=== PATIENT | female | born 1955 | race Caucasian/White ===

== ENCOUNTER → 2016-06-15 | Outpatient (CLI) | payer OTHER ==
[~2016-06-15] MED LIST: AMLO-110 PO; CEPH500C PO; FURO-85 PO; LISI40TA PO; ZOLP10TA6 PO
[2016-06-15 11:22] LABS: URINE APPEARANCE CLEAR (CLEAR); URINE BILIRUBIN NEG (NEG); URINE COLOR YELLOW; URINE EPITHELIAL CELL AUTO >30 /lpf (0-5); URINE NITRITE NEG (NEG); URINE SPECIFIC GRAVITY 1.019 (1.000-1.030); UROBILINOGEN NEG (NEG)
[2016-06-15 11:25] LABS: ESTIMATED AVERAGE GLUCOSE 123 mg/dl; HA1C FLAG Normal (Normal)
[2016-06-15 11:28] LABS: MANUAL MICROSCOPIC REQUIRED? NO; REVIEW REQ? NO
[2016-06-15 11:41] LABS: ALT/SGPT 17 U/L (12-78); BLOOD UREA NITROGEN 17 mg/dl (7-18); BUN/CREATININE RATIO 22.1 (10-20); CALCIUM 8.9 mg/dl (8.5-10.1); CARBON DIOXIDE 26 mmol/L (21-32); CHLORIDE 105 mmol/L (98-107); CREATININE 0.78 mg/dl (0.60-1.20); GLUCOSE 103 mg/dl (70-99); POTASSIUM 4.1 mmol/L (3.5-5.1); SODIUM 139 mmol/L (136-145)
[2016-06-15 11:46] LABS: ALB/GLOB RATIO 0.8 (0.9-2); ALKALINE PHOSPHATASE 86 U/L (45-117); AST/SGOT 11 U/L (15-37)
== END | disposition home or self-care (01) ==
LOC: C.LAB1850 09:54
PROVIDERS: ATTEND Family Medicine
DX: I10 Essential (primary) hypertension (principal); Z11.59 Encounter for screening for other viral diseases; R31.29 Other microscopic hematuria; R73.03 Prediabetes

== ENCOUNTER → 2016-07-09 | Outpatient (CLI) | payer OTHER | END | disposition home or self-care (01) | LOC: C.PAPS 16:45 | PROVIDERS: ATTEND Obstetrics & Gynecology | DX: Z01.411 Encounter for gynecological examination (general) (routine) with abnormal findings (principal) ==

== ENCOUNTER 2016-11-08 01:43 | Emergency (ER) | payer OTHER ==
[~2016-11-08] VITALS: Ht 175.3 cm; Wt 141.4 kg
[~2016-11-08 01:43] MED LIST changes: -CEPH500C PO
[2016-11-08 01:49] VITALS: TEMP 36.5; Ht 175.3 cm; Wt 141.4 kg
[2016-11-08] MEDS ORDERED: CEPH500C PO (02:08)
[2016-11-08] MEDS ORDERED: CEPHALEXIN 500MG HOME PACK 1 EA BTL PO ONE (02:15)
[2016-11-08 02:37] VITALS: BP 138/84; PULSE 82; O2SAT 96
--- NOTE | 2016-11-08 03:39 | EMERGENCY ROOM VISIT NOTE ---
History Report prepared by Radha: Meli Mc Under the Supervision of: Dr. Robert Britt M.D. First contact with patient: 01:57 Chief Complaint: RASH Stated Complaint: RED/SWELLING ON CHEST History of Present Illness The patient is a 61 year old female who presents to the Emergency Room with complaints of a sudden rash beginning shortly prior to arrival. She states that the rash is on her right upper chest and that it feels warm, but that it is not sore. The patient does not think that the rash is from a bite. There is no blistering. It is not itching. She denies any new chemicals or contacts. She states that she did not have a stressful day. Pt denies LOC, headache, fevers, chills, diaphoresis, visual changes, neck pain, chest pain, breathing difficulties, nausea, vomiting, abdominal pain, back pain, melena, hematochezia , urinary symptoms, numbness, weakness, lymphadenopathy, or other complaints. Source of History: patient Onset: shortly prior to arrival Position: chest (right) Quality: other (rash) Timing: other (sudden) Associated Symptoms: + neck pain Review of Systems See HPI for pertinent positives and negatives. A total of six systems were reviewed and were otherwise negative. Past Medical & Surgical Medical Problems: (1) Arthritis (2) Hypertension Family History FH: colon cancer Social History Smoking Status: Former Smoker Marital Status: single Occupation Status: employed Current/Historical Medications Scheduled Amlodipine (Norvasc), 5 MG PO HS Cephalexin Monohydrate (Keflex), 500 MG PO QID Lisinopril (Zestril), 40 MG PO HS Scheduled PRN Furosemide (Lasix), 20 MG PO DAILY PRN for LEG SWELLING Zolpidem Tartrate (Zolpidem Tartrate), 10 MG PO HS PRN for Sleep Allergies Coded Allergies: No Known Allergies (Unverified , 08/14/15) Physical Exam Vital Signs Date Time Temp Pulse Resp B/P (MAP) Pulse Ox O2 Delivery O2 Flow Rate FiO2 11/08/16 02:37 82 18 138/84 96 11/08/16 01:49 36.5 83 19 142/71 96 Room Air Physical Exam GENERAL: Awake, alert, well-appearing, in no acute distress HENT: Normocephalic, atraumatic. Oropharynx unremarkable. EYES: Normal conjunctiva. Sclera non-icteric. NECK: Supple. No nuchal rigidity. FROM. No JVD. RESPIRATORY: Clear to auscultation. CARDIAC: Regular rate, normal rhythm. Extremities warm and well perfused. Pulses equal. MUSCULOSKELETAL: Chest examination reveals no tenderness. The back is symmetrical on inspection without obvious abnormality. There is no CVA tenderness to palpation. NEURO: Normal sensorium. No sensory or motor deficits noted. SKIN: No jaundice noted. Faint erythematous patch in right medial upper chest. Mild swelling. No blistering. No purpura. No crepitus. Medical Decision & Procedures Medications Administered Medications (Trade) Dose Ordered Sig/Sundar Route Start Time Stop Time Status Last Admin Dose Admin Cephalexin Monohydrate (Keflex 500MG Home Pack) 1 homepack NOW ONCE PO 11/08/16 02:15 11/08/16 02:16 DC 11/08/16 02:35 1 HOMEPACK ED Course 0215: The patient was evaluated in room B12B. A complete history and physical exam was performed. 0215: Ordered Cephalexin Monohydrate 1 homepack PO. Medical Decision Medication Reconciliation: I attest that I have personally reviewed the patient' s current medication list Blood pressure screening: Patient was found to have an elevated blood pressure and was referred to their primary doctor for recheck and further treatment. Triage Nursing notes reviewed and agree them. Additional history obtained from the family. The patient's history was concerning for a rash. Differential diagnosis: Etiologies such as cellulitis, Zimmerman-Germán syndrome, toxic epidermal necrolysis, erythema multiforme, scabies, HSV, Zoster, staph scalded skin syndrome, viral exanthem, fungal infection, urticaria, allergic reaction, contact dermatitis, as well as others were entertained. Physical examination: As above. There was an erythematous patch without signs of zoster. No crepitus. No open wounds. No hives. Concerning for early cellulitis. ER treatment provided: Keflex home pack Diagnostic interpretation by me: Deferred The etiology for the patient's rash is not clearly evident at this time although seems most consistent with an early cellulitis. I discussed conservative management. She will be prescribed Keflex and use warm compresses. If She worsens in any way she will come back. By the evaluation outlined above emergent etiologies such as Zimmerman-Germán syndrome, toxic epidermal necrolysis, erythema multiforme, scabies, HSV, varicella, zoster, staph scalded skin syndrome, urticaria, allergic reaction, as well as others were deemed relatively unlikely. The patient was informed about the findings as listed above. All questions were answered and she was pleased with the treatment. Return instructions were outlined and the patient was discharged in stable condition. Outpatient prescription management: Keflex Referral: The patient was referred back to her primary care physician for follow-up next week for a recheck of the current condition. The chart was completed utilizing [employer] voice recognition software. Grammatical errors, random word insertions, pronoun errors, and incomplete sentences are an occasional consequence of this system due to software limitations, ambient noise, and hardware issues. Any formal questions or concerns about the content, text, or information contained within the body of this dictation should be directly addressed to the physician for clarification. Impression Primary Impression: Cellulitis Scribe Attestation The scribe's documentation has been prepared under my direction and personally reviewed by me in its entirety. I confirm that the note above accurately reflects all work, treatment, procedures, and medical decision making performed by me. Departure Information Dispostion Home / Self-Care Prescriptions Cephalexin Monohydrate (Keflex) 500 Mg Cap 500 MG PO QID, #36 CAP Prov: Robert Britt MD 11/08/16 Referrals Humberto Perales D.O.[facility] (PCP) Forms HOME CARE DOCUMENTATION FORM, IMPORTANT VISIT INFORMATION, WORK / SCHOOL INSTRUCTIONS Patient Instructions My [facility] Additional Instructions CELLULITIS INSTRUCTIONS: Cephalexin(Keflex) 500mg: Take one pill four times daily for 10 days for your skin infection. All antibiotics can cause diarrhea. If this occurs and you feel worse or it does not resolve in 1-2 days follow up with your doctor or return to the Emergency Department as this could be signs of serious underlying problems. Any medication can cause an allergic reaction, stop the pills immediately and return to the ER for rash, hives, breathing difficulties, or swelling. Review the package insert for all your medications. This is necessary as important health information is provided for your benefit and current care. Acetaminophen(Tylenol) may be used for fever or pain. Use 1000mg every six hours as needed. Avoid using more than 4000mg in a 24 hour period. Warm compresses to the affected area 4 times daily for 15-20 minutes. Rest and drink plenty of fluids. Continue current medications. Return to the ER for severe pain, persistent fevers, spreading redness, or any worsening of your condition. Follow up with your primary physician this week for a recheck of the current condition and blood pressure check.
== END 2016-11-08 02:38 | disposition home or self-care (01) ==
LOC: C.EDB 01:44
DX: L03.313 Cellulitis of chest wall (principal); M19.90 Unspecified osteoarthritis, unspecified site; I10 Essential (primary) hypertension; Z80.9 Family history of malignant neoplasm, unspecified; Z87.891 Personal history of nicotine dependence; Z79.899 Other long term (current) drug therapy

== ENCOUNTER → 2017-03-29 | Outpatient (CLI) | payer OTHER ==
[~2017-03-29] MED LIST changes: +CEPH500C PO
[2017-03-29 17:07] LABS: HEMATOCRIT 37.6 % (37-47); MEAN CELL VOLUME 86.4 fL (80-100); MEAN CORPUSCULAR HEMOGLOBIN 28.5 pg (25-34); MEAN PLATELET VOLUME 10.9 fL (7.4-10.4); PLATELET COUNT 228 K/uL (130-400); RED BLOOD COUNT 4.35 M/uL (4.2-5.4)
[2017-03-29 17:23] LABS: ALT/SGPT 64 U/L (12-78); AST/SGOT 40 U/L (15-37); BLOOD UREA NITROGEN 23 mg/dl (7-18); CALCIUM 9.1 mg/dl (8.5-10.1); CARBON DIOXIDE 30 mmol/L (21-32); CHLORIDE 102 mmol/L (98-107); CREATININE 1.05 mg/dl (0.60-1.20); GLUCOSE 103 mg/dl (70-99); POTASSIUM 5.2 mmol/L (3.5-5.1); SODIUM 138 mmol/L (136-145)
[2017-03-29 17:27] LABS: ALB/GLOB RATIO 0.8 (0.9-2); ALKALINE PHOSPHATASE 95 U/L (45-117); CHOLESTEROL 218 mg/dl (0-200); CHOLESTEROL/HDL RATIO 3.9; HDL CHOLESTEROL 56 mg/dl; LDL CHOLESTEROL CALCULATED 137 mg/dl; TRIGLYCERIDES 127 mg/dl (0-150); VERY LOW DENSITY LIPOPROT CALC 25 mg/dl
[2017-03-30 06:06] LABS: ESTIMATED AVERAGE GLUCOSE 123 mg/dl; HA1C FLAG Normal (Normal)
== END | disposition home or self-care (01) ==
LOC: C.LABBFT 14:18
PROVIDERS: ATTEND Physician Assistant Medical
DX: I10 Essential (primary) hypertension (principal); R73.03 Prediabetes

== ENCOUNTER → 2017-12-01 | Outpatient (CLI) | payer OTHER ==
[~2017-12-01] MED LIST changes: -AMLO-110 PO; +AMLO5TAB3 PO; -CEPH500C PO; +DULO60CA44 PO; -FURO-85 PO; +IBUP-1050 PO
== END | disposition home or self-care (01) ==
LOC: C.LABBFT 12:51
PROVIDERS: ATTEND Nurse Practitioner
DX: R39.9 Unspecified symptoms and signs involving the genitourinary system (principal)